=== PATIENT | female | born 1970 ===

== ENCOUNTER 2019-03-29 11:00 | Inpatient (IN) | payer OTHER ==
[~2019-03-29] VITALS: Ht 152.4 cm; Wt 95.3 kg
[2019-04-07] MEDS ORDERED: Tylenol #3 PO (09:55)
== END 2019-04-07 10:46 | DRG 743 ==
LOC: O/R 11:00 → SURH 04-01 11:00 → O/R 04-04 06:00 → OB/GYN 04-04 13:29
PROVIDERS: ADMIT Obstetrics & Gynecology
PROC: 0DNW0ZZ Release Peritoneum, Open Approach (ICD-10-PCS; 2019-04-04)
PROC: 0TJB8ZZ Inspection of Bladder, Via Natural or Artificial Opening Endoscopic (ICD-10-PCS; 2019-04-04)
PROC: 0UT90ZZ Resection of Uterus, Open Approach (ICD-10-PCS; principal; 2019-04-04 20:30)
DX: D25.1 Intramural leiomyoma of uterus (principal); N72 Inflammatory disease of cervix uteri; N73.6 Female pelvic peritoneal adhesions (postinfective)